=== PATIENT | female | born 1960 | race Caucasian/White ===

== ENCOUNTER 2016-08-01 18:30 | Observation (INO) | payer OTHER ==
[~2016-08-01] VITALS: Ht 157.5 cm; Wt 87.6 kg
[2016-08-01 20:55] VITALS: BP 134/63; PULSE 57; TEMP 98.4
[2016-08-01] MEDS ORDERED: TYLENOL 325MG325 MG PO (21:14)
[2016-08-01] MEDS ORDERED: MOTRIN 200200 MG/TAB PO (21:15)
[2016-08-01 23:36] VITALS: BP 124/61; PULSE 63; TEMP 98.6
[2016-08-02 03:04] VITALS: BP 117/62; PULSE 52; TEMP 97.7
[2016-08-02 06:23] VITALS: BP 120/54; PULSE 53; TEMP 97.6
[2016-08-02 09:51] VITALS: BP 132/69; PULSE 51; TEMP 97.6
[2016-08-02 12:24] VITALS: BP 122/62; PULSE 64; TEMP 97.9
[2016-08-02 13:09] LABS: MAGNESIUM 2.1 mg/dL (1.6-2.3)
[2016-08-02 13:36] LABS: THYROID STIMULATING HORMONE 0.833 uIU/mL (0.465-4.680)
[2016-08-02] MEDS ORDERED: TOPAMAX 25MG25 M1 PO (14:50)
[2016-08-02] MEDS ORDERED: MIDRIN 325 MG-11 CAP PO (14:51)
[2016-08-02 16:05] VITALS: BP 137/68; PULSE 64; TEMP 97
[2016-08-02 17:59] LABS: THYROXINE (T4)-TOTAL 8.1 ug/dL (5.5-11.0)
== END 2016-08-02 17:00 | disposition home or self-care (01) ==
LOC: MEDICAL 18:30
PROVIDERS: Psychiatry & Neurology Neurology
DX: G43.809 Other migraine, not intractable, without status migrainosus (principal); R06.02 Shortness of breath; I82.0 Budd-Chiari syndrome; E04.1 Nontoxic single thyroid nodule; Z87.891 Personal history of nicotine dependence
CPT/HCPCS: G0378; J1200; J1650; J1885; J2550; J7030

== ENCOUNTER → 2019-04-27 | Outpatient (CLI) | payer OTHER ==
[~2019-04-27] MED LIST: MIDRIN 325 MG-11 CAP PO; MOTRIN 200200 MG/TAB PO; TOPAMAX 25MG25 M1 PO; TYLENOL 325MG325 MG PO
== END ==
LOC: COL.RAD 08:53
DX: H91.8X1 Other specified hearing loss, right ear (principal)
CPT/HCPCS: A9585

== ENCOUNTER → 2023-10-13 | Outpatient (CLI) | payer OTHER | LOC: MHCPAIN 15:30 | DX: M47.896 Other spondylosis, lumbar region (principal); M54.17 Radiculopathy, lumbosacral region | CPT/HCPCS: G0463 ==